=== PATIENT | male | born 1965 | race Caucasian/White ===

== ENCOUNTER 2018-03-27 07:34 | Emergency (ER) | payer SELFPAY ==
[2018-03-27] MEDS ORDERED: Metoclopramide 10 MG/2 ML SDV IVPUSH ONE (08:09)
[2018-03-27] MEDS ORDERED: HYDROmorphone 0.5 MG/0.5 ML SYRINGE IVPUSH ONE ×2 (08:09→08:55)
[2018-03-27] MEDS ORDERED: Sodium Chloride 0.9% 1,000 ML IV SCH (08:15)
--- NOTE | 2018-03-27 08:15 | EDM.PDOC ---
ED HPI GENERAL MEDICAL PROBLEM - General Chief Complaint: Genitourinary Problem Stated Complaint: BLOOD IN URINE/FLANK PAIN Time Seen by Provider: 03/27/18 08:08 Source of Information: Reports: Patient History Limitations: Reports: No Limitations - History of Present Illness INITIAL COMMENTS - FREE TEXT/NARRATIVE: 52-year-old male presents to the ED with acute onset of left flank pain about 2000 hrs. last evening. States shortly thereafter he passed grossly bloody urine. He said was quite dark at that time. Subsequently he was up during the night to pass his urine 5-6 times a a continued feeling of need to void. No associated nausea or vomiting. No feeling of need to defecate continuously. No past history of renal stones. Past surgical procedures on the abdomen have been an appendectomy and a right inguinal hernia. Currently rates the pain as 8 out of 10. He did not have breakfast this morning. Onset: Sudden Onset Date: 03/26/18 Onset Time: 20:00 Duration: Hour(s): Location: Reports: Back (Left flank.) Quality: Reports: Ache, Throbbing, Other Severity: Moderate (Colicky component to the pain) Improves with: Reports: None ( early pain as 8 out of 10) Worsens with: Reports: None Context: Reports: Other. Denies: Activity, Exercise, Lifting, Sick Contact, Trauma Associated Symptoms: Reports: Malaise. Denies: Confusion (Spontaneous occurrence at about 2000 hrs. 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[employer]: Reports: Other (see below) - Related Data Allergies Allergy/AdvReac Type Severity Reaction Status Date / Time No Known Allergies Allergy Verified 03/27/18 08:44 Home Meds: Home Meds Aspirin [Deanna Chewable Aspirin] 2 tab.chew PO DAILY 03/27/18 [History] Tamsulosin HCl [Flomax] 0.4 mg PO DAILY #30 cap.er.24h 03/27/18 [Rx] Past Medical History Cardiovascular History: Reports: Hypertension Neurological History: Reports: Concussion, Migraines - Past Surgical History Head Surgeries/Procedures: Reports: None GI Surgical History: Reports: Hernia, Inguinal Other GI Surgeries/Procedures: 06/1988 Musculoskeletal Surgical History: Reports: Shoulder Surgery Other Musculoskeletal Surgeries/Procedures:: 02/2006 - Left Social & Family History - Tobacco Use Smoking Status *Q: Current Every Day Smoker Years of Tobacco use: 20 Packs/Tins Daily: 0.5 - Caffeine Use Caffeine Use: Reports: Coffee, Tea - Recreational Drug Use Recreational Drug Use: No - Living Situation & Occupation Living situation: Reports: Single Occupation: Employed ED ROS GENERAL - Review of Systems Review Of Systems: See Below Constitutional: Reports: Decreased Appetite. Denies: Fever, Chills, Malaise, Weakness, Fatigue, Weight Loss HEENT: Reports: No Symptoms Respiratory: Reports: No Symptoms Cardiovascular: Reports: No Symptoms Endocrine: Reports: No Symptoms GI/Abdominal: Reports: No Symptoms : Reports: Flank Pain (Gross hematuria since 2000 hrs. last night associated with left flank pain.), Other Musculoskeletal: Reports: No Symptoms Skin: Reports: No Symptoms Neurological: Reports: No Symptoms Psychiatric: Reports: No Symptoms Hematologic/Lymphatic: Reports: No Symptoms Immunologic: Reports: No Symptoms ED EXAM, GI/ABD - Physical Exam Exam: See Below Exam Limited By: No Limitations General Appearance: Alert, WD/WN, No Apparent Distress Eyes: Bilateral: Normal Appearance Respiratory/Chest: No Respiratory Distress, Lungs Clear, Normal Breath Sounds, No Accessory Muscle Use, Chest Non-Tender Cardiovascular: Normal Peripheral Pulses, Regular Rate, Rhythm, No Edema, No Gallop, No Murmur GI/Abdominal Exam: Normal Bowel Sounds, Soft, Non-Tender, No Organomegaly, Other (Moderately obese. Abdominal girth limits ability to palpate solid organs. Evidence of previous appendectomy and right inguinal hernia raphe.) Back Exam: CVA Tenderness (L) Extremities: Normal Inspection, Normal Range of Motion, Non-Tender, No Pedal Edema Neurological: Alert, Oriented, CN II-XII Intact, Normal Cognition, Normal Gait Psychiatric: Normal Affect, Normal Mood Skin Exam: Warm, Dry, Intact, Normal Color, No Rash Course - Vital Signs Last Recorded V/S: Last Vital Signs Temp 36.7 C 03/27/18 07:41 Pulse 82 03/27/18 12:30 Resp 20 03/27/18 07:41 BP 145/85 H 03/27/18 12:30 Pulse Ox 98 03/27/18 12:30 - Orders/Labs/Meds Orders: Active Orders 24 hr Category Date Time Status URINALYSIS W/MICROSCOPIC [UA W/MICROSCOPIC] [URIN] Stat Lab 03/27/18 09:22 Ordered 52-year-old male presents to the ED with acute onset of left flank pain last evening associated with gross hematuria. Since that time he has a constant need or feeling of need to void. States the pain is 8 out of 10. He was able to sleep some during the night by laying on the left side. States it felt better for was compressed. This morning the urine is clear but still had some blood. He no no associated nausea or vomiting. Has a brother hasn't had kidney stones. Plan urinalysis. CT abdomen per renal protocol. IV normal saline at 150 mils per hour. Given Dilaudid 1 mg IV with Reglan 10 mg IV for nausea and pain relief. Labs: Laboratory Tests 03/27/18 03/27/18 03/27/18 Range/Units 08:18 08:18 09:22 WBC 8.46 (4.23-9.07) K/mm3 RBC 5.30 (4.63-6.08) M/mm3 Hgb 16.1 (13.7-17.5) gm/L Hct 47.5 (40.1-51.0) % MCV 89.6 (79.0-92.2) fl MCH 30.4 (25.7-32.2) pg MCHC 33.9 (32.2-35.5) g/dl RDW Std Deviation 45.7 H (35.1-43.9) fL Plt Count 212 (163-337) K/mm3 MPV 11.5 (9.4-12.3) fl Neutrophils % (Manual) 62 H (40-60) % Band Neutrophils % 4 (0-10) % Lymphocytes % (Manual) 23 (20-40) % Atypical Lymphs % 1 % Monocytes % (Manual) 3 (2-10) % Eosinophils % (Manual) 6 (0.8-7.0) % Basophils % (Manual) 0 L (0.2-1.2) Metamyelocytes % 1 Toxic Granulation 1+ slight Platelet Estimate Adequate Plt Morphology Comment See note Polychromasia 1+ slight Stomatocytes 1+ slight RBC Morph Comment Not Reportable Sodium 141 (136-145) mEq/L Potassium 4.0 (3.5-5.1) mEq/L Chloride 106 (98-107) mEq/L Carbon Dioxide 27 (21-32) mEq/L Anion Gap 12.0 (5-15) BUN 17 (7-18) mg/dL Creatinine 1.1 (0.7-1.3) mg/dL Est Cr Clr Drug Dosing TNP Estimated GFR (MDRD) > 60 (>60) mL/min BUN/Creatinine Ratio 15.5 (14-18) Glucose 174 H (74-106) mg/dL Calcium 8.8 (8.5-10.1) mg/dL Total Bilirubin 0.6 (0.2-1.0) mg/dL AST 17 (15-37) U/L ALT 37 (16-63) U/L Alkaline Phosphatase 68 (46-116) U/L C-Reactive Protein 1.6 H* (<1.0) mg/dL Total Protein 7.1 (6.4-8.2) g/dl Albumin 3.5 (3.4-5.0) g/dl Globulin 3.6 gm/dL Albumin/Globulin Ratio 1.0 (1-2) Urine Color Yellow (Yellow) Urine Appearance Clear (Clear) Urine pH 6.0 (5.0-8.0) Ur Specific [place] > or = 1.030 (1.005-1.030) Urine Protein Negative (Negative) Urine Glucose (UA) Negative (Negative) Urine Ketones Negative (Negative) Urine Occult Blood Negative (Negative) Urine Nitrite Negative (Negative) Urine Bilirubin Negative (Negative) Urine Urobilinogen 1.0 (0.2-1.0) Ur Leukocyte Esterase Negative (Negative) Urine RBC 0-5 (0-5) /hpf Urine WBC 0-5 (0-5) /hpf Ur Epithelial Cells 0-5 (0-5) /hpf Urine Bacteria Few (FEW) /hpf Urine Mucus Moderate H (FEW) /hpf Meds: Medications Discontinued Medications Generic Name Dose Route Start Last Admin Trade Name Freq PRN Reason Stop Dose Admin Hydromorphone HCl 1 mg 03/27/18 08:09 03/27/18 08:34 Dilaudid IVPUSH 03/27/18 08:10 1 mg ONETIME ONE Administration Hydromorphone HCl 0.5 mg 03/27/18 08:55 03/27/18 09:01 Dilaudid IVPUSH 03/27/18 08:56 0.5 mg ONETIME ONE Administration Sodium Chloride 1,000 mls @ 150 mls/hr 03/27/18 08:15 03/27/18 08:34 Normal Saline IV 150 mls/hr ASDIRECTED YASMANI Administration Iopamidol 125 ml 03/27/18 09:49 03/27/18 10:07 Isovue-300 (61%) IVPUSH 03/27/18 09:50 125 ml ONETIME ONE Administration Metoclopramide HCl 10 mg 03/27/18 08:09 03/27/18 08:34 Reglan IVPUSH 03/27/18 08:10 10 mg ONETIME ONE Administration Sodium Chloride 10 ml 03/27/18 10:02 03/27/18 10:07 Saline Flush FLUSH 10 ml ONETIME PRN Administration IV FLUSH - Radiology Interpretation Free Text/Narrative:: 52-year-old male presents to the ED with acute left flank pain radiating into his left upper abdomen. This started about 2000 hrs. last night and was associated with gross hematuria. Central gross hematuria on urine passage throughout the night 5 or 6 times. States the urine looked a little clear on the last void. Pain is rated at 8 out of 10 in his left flank. He does have left costovertebral angle tenderness on examination but no other positive findings. Of note his abdominal girth limits ability to palpate solid organs. No history of renal stones. - Re-Assessments/Exams Free Text/Narrative Re-Assessment/Exam: 03/27/18 08:56 CT of the abdomen and pelvis done per renal protocol reveals no hydronephrosis of the left kidney. The ureter appears to be within normal limits with no obstruction from a stone identified. Similarly no stones are identified in the right renal parenchyma or) each system. The liver the pancreas and spleen all appear normal. Gallbladder is difficult to identify. There is a large fat filled umbilical hernia. 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 Plan we will await the radiologist's report. Patient reports his pain is down to a 4 out of 10. Will given her another 0.5 mg of Dilaudid IV. Lab work will be done to assess his creatinine for potential IV with contrast CT of the abdomen and pelvis to babble better look at the kidney. 03/27/18 09:39 Labs are back. Total white count is normal at 8.46. Hemoglobin is 16.1. Hematocrit is 47.5. Platelet count is normal at 212,000. Differential is 62% neutrophils and 4% band cells. Sodium is 141 with potassium of 4.0. Toward 106 with a bicarbonate 27. And a gap is normal at 12.0. BUN is 17 with a creatinine of 1.1. GFR is greater than 60. Glucose elevated at 174. Calcium 8.8. Liver function normal. C-reactive protein 1.6. Only the dip is back on the urinalysis showing nothing. There is no leukocyte esterase or blood reported. Micro pending. 03/27/18 11:32 Urinalysis is negative for infective process. No red cells were identified either. Repeat CT scan of the abdomen pelvis done with IV contrast reveals no abnormalities within the kidneys other than a 2.2 cm cyst in the upper pole of the right kidney which was noted on previous CT. No additional abnormalities were seen with pain either kidney. Delayed images show contrast excretion from both kidneys into the ureters. No filling defects are seen within the opacified collecting system or ureters. Contrast is seen on delayed images within the bladder bladder wall again noted to be slightly thickened. Just mild prostatic obstruction. In light of a normal urinalysis at this time the source of bleeding is unclear but may be from the bladder wall. Patient will require follow-up with urology services for cystoscopy to rule out a tumor in his bladder as a cause of his bleeding per urethra. Patient advised of this findings. I will try and set up by urology appointment for him at [facility] in [place]. 03/27/18: Was able to speak to urologist Dr. Perez. He will have his department arrange an appointment time for this patient and contact him by phone. Departure - Departure Time of Disposition: 12:03 Disposition: Home, Self-Care 01 Condition: Fair Clinical Impression: Gross hematuria - Discharge Information *PRESCRIPTION DRUG MONITORING PROGRAM REVIEWED*: Not Applicable *COPY OF PRESCRIPTION DRUG MONITORING REPORT IN PATIENT NICOL: Not Applicable Prescriptions: Tamsulosin HCl [Flomax] 0.4 mg PO DAILY #30 cap.er.24h Instructions: Flank Pain, Adult, [id number] Referrals: PCP,None [Primary Care Provider] - Forms: ED Department Discharge Additional Instructions: Evaluation the emergency room today in regards to development of left-sided flank pain and associated bloody urine. This started at 2000 hrs. last night. Pressure discomfort in the left flank area persisted throughout the night but you're able to get some sleep. Reportedly up 5 or 6 times during the night to void all of which contain blood. He noticed that the last year and voided was fairly clear however. Therefore the consideration was for a possible kidney stone in the left kidney or upper ureter. CT scan of the abdomen was performed without contrast per renal protocol and no stones were identified in either kidney or in the ureters to obstruct the kidney. There is a 2.2 cm cyst in the upper pole of the right kidney which you are likely born with and is of no consequence. Due to the concern for the model blood identified by you in the urine further investigations were felt to be indicated. Therefore CT of the abdomen and pelvis was done with IV contrast to rule out any cancer in the kidneys or ureters. This proved to be normal as well. The only finding is a slightly thickened bladder wall suggesting while a blood obstruction may be due to an enlarged prostate. However you do not seem to have symptoms to support this. Therefore the other source of blood in the urine can be from the inside of the bladder wall from tumor or growth. Therefore further investigations are required with a urologist to look into your bladder to identify that there is no serious pathology. The urine analysis done in the ED did not show any signs of infection or blood at today. Continue all regular diet and regular fluids until follow-up with urology services. We'll place you on Flomax 0.4 mg once daily every night at bedtime until follow-up with urology services. This would help reduce swelling of the prostate. I have contacted [facility] urology services and they will call you with an appointment time likely within the next day or so. You may find blood in your urine intermittently for the next several days or weeks. The only reason to return to medical care would be if you cannot void because of clots formation within the bladder and plugged up the urinary system. - My Orders Last 24 Hours: My Active Orders 03/27/18 09:22 URINALYSIS W/MICROSCOPIC [UA W/MICROSCOPIC] [URIN] Stat - Assessment/Plan Last 24 Hours: My Active Orders 03/27/18 09:22 URINALYSIS W/MICROSCOPIC [UA W/MICROSCOPIC] [URIN] Stat
--- NOTE | 2018-03-27 09:04 | CT ---
CT abdomen and pelvis Technique: Multiple axial sections were obtained from above the kidneys inferiorly through the pubic symphysis. Intravenous contrast and oral contrast was not utilized. Study has been performed as a ureteral stone protocol. Findings: Kidneys show no abnormal calcifications. No ureteral dilatation is seen. No ureteral calcifications are noted. No bladder calculi are seen. Incidental prostate calcifications are present. 1.7 cm upper pole cyst is noted within the right kidney. Fatty infiltration is seen within the liver. Visualized lung bases show nothing acute. Spleen appears within normal limits. Adrenal glands show no nodule. Pancreas appears within normal limits. Aorta shows no aneurysmal dilatation. Fat-containing anterior abdominal wall hernia is seen which is located directly above the umbilicus. No retroperitoneal adenopathy or mesenteric abnormalities are seen. No pelvic mass or adenopathy is seen. Small fat-containing bilateral inguinal hernias are noted. Bone window settings were reviewed which show mild degenerative change scattered within the spine. Impression: 1. No renal calculi, no ureteral dilatation or ureteral stone is seen. 2. 1.7 cm upper pole cyst within the right kidney. 3. Fatty infiltration within the liver and other incidental findings. Diagnostic code #2
[2018-03-27] MEDS ORDERED: Iopamidol 612 MG/ML 150 ML Bottle IVPUSH ONE (09:49)
[2018-03-27] MEDS ORDERED: Sodium Chloride 0.9% 10 ML Syringe FLUSH PRN (10:02)
--- NOTE | 2018-03-27 10:51 | CT ---
CT abdomen and pelvis Technique: Multiple axial sections were obtained from above the dome of the diaphragm inferiorly to the iliac crests. Intravenous contrast was utilized. Imaging was obtained 40 seconds after contrast administration. 5 minute delayed images were then obtained from above the dome of the diaphragm inferiorly to the pubic symphysis. Comparison: Prior noncontrast CT exam performed earlier on the same day (8:40 AM) Findings: Cyst is identified within the upper right kidney. Cyst measures about 2.2 cm on this exam. No additional abnormality is seen within the kidneys. Delayed images show contrast excretion from both kidneys into the ureters. No filling defects are seen within the opacified collecting system or ureters. Contrast is seen on delayed images within the bladder. Bladder wall again noted to be slightly thickened. Fatty infiltration is seen within the liver. Spleen is normal. Visualized lung bases are clear. Adrenal glands appear within normal limits. Pancreas is normal. Fat-containing anterior abdominal wall hernia is seen. Aorta shows atherosclerotic change without aneurysm. No retroperitoneal adenopathy or mesenteric abnormalities are seen. No pelvic mass or adenopathy is seen. Small fat-containing bilateral inguinal hernias are noted. Impression: 1. Small cyst within the upper right kidney. Kidneys otherwise appear normal without mass or hydronephrosis. Opacified collecting systems and ureters appear within normal limits. Bladder wall thickening is again noted most likely representing change from chronic bladder outlet obstruction. 2. Fatty infiltration within the liver and other incidental findings. Note: No etiology is seen for the patient's gross hematuria or flank pain. Diagnostic code #2
[2018-03-27 12:31] VITALS: BP 145/85
== END 2018-03-27 12:29 | disposition home or self-care (01) ==
LOC: JD.ED 07:34
DX: R31.0 Gross hematuria (principal); I10 Essential (primary) hypertension; F17.210 Nicotine dependence, cigarettes, uncomplicated; Z79.82 Long term (current) use of aspirin
CPT/HCPCS: 36415; 74176; 74177; 80053; 81001; 85007; 85027; 86140; 96361; 96374; 96375; 99284; J1170; J2765; J7040; J7050; Q9967

== ENCOUNTER 2021-05-04 06:40 | Day surgery (SDC) | payer BC, MEDICAID ==
[~2021-05-04 06:40] MED LIST: Acetaminophen 325 MG Tab PO SCH; Lactated Ringers 1,000 ML IV SCH; Lidocaine 1%/Sod Bicarbonate in NS 8.4% 1 ML Syringe IDERM PRN; Pregabalin 25 MG Cap PO SCH; Sodium Chloride 0.9% 10 ML Syringe FLUSH PRN; oxyCODONE ER 10 MG TAB.ER PO SCH
[2021-05-04] MEDS ORDERED: Propofol 200 MG/20 ML SDV ONE (07:28)
[2021-05-04] MEDS ORDERED: fentaNYL 100 MCG/2 ML SDV ONE (07:28)
[2021-05-04] MEDS ORDERED: Midazolam 1 MG/ML 2 ML SDV ONE (07:34)
[2021-05-04] MEDS ORDERED: Dexamethasone 4 MG/ML 5 ML MDV ONE (07:35)
[2021-05-04] MEDS ORDERED: Ondansetron 4 MG/2 ML SDV ONE (07:35)
--- NOTE | 2021-05-04 07:46 | PCM.PREANE ---
Preanesthetic Assessment - Procedure Proposed Procedure: L TKA - Anesthesia/Transfusion/Family Hx Anesthesia History: Prior Anesthesia Without Reaction Family History of Anesthesia Reaction: No Transfusion History: No Prior Transfusion(s) - Review of Systems General: No Symptoms Pulmonary: No Symptoms, Other (TERI with CPAP, smoker, ) Cardiovascular: No Symptoms Gastrointestinal: No Symptoms Neurological: No Symptoms Other: Reports: None - Physical Assessment NPO Status Date: 05/03/21 NPO Status Time: 23:30 Vital Signs: Last Vital Signs Temp 36.4 C 05/04/21 07:40 Pulse Resp BP Pulse Ox Height: 1.75 m Weight: 127 kg ASA Class: 3 Mental Status: Alert & Oriented x3 Dentition: Reports: Dentures (upper) Thyro-Mental Finger Breadths: 3 Mouth Opening Finger Breadths: 3 ROM/Head Extension: Full Lungs: Clear to Auscultation, Normal Respiratory Effort Cardiovascular: Regular Rate, Regular Rhythm - Allergies Allergies/Adverse Reactions: Allergies Allergy/AdvReac Type Severity Reaction Status Date / Time No Known Allergies Allergy Verified 05/03/21 16:38 - Blood Blood Available: No Product(s) Available: None - Anesthesia Plan Pre-Op Medication Ordered: None - Acknowledgements Anesthesia Type Planned: Spinal Pt an Appropriate Candidate for the Planned Anesthesia: Yes Alternatives and Risks of Anesthesia Discussed w Pt/Guardian: Yes Pt/Guardian Understands and Agrees with Anesthesia Plan: Yes PreAnesthesia Questionnaire HEENT History: Reports: Impaired Vision, Other (See Below) Other HEENT History: wears glasses, has dentures Cardiovascular History: Reports: Heart Murmur, Hypertension Respiratory History: Reports: Sleep Apnea Gastrointestinal History: Reports: None Genitourinary History: Reports: None DIGITAL EDITOR History: Reports: None Neurological History: Reports: Concussion, Migraines Psychiatric History: Reports: None Endocrine/Metabolic History: Reports: Diabetes, Type II Hematologic History: Reports: None Oncologic (Cancer) History: Reports: None Dermatologic History: Reports: Other (See Below) Other Dermatologic History: hordeolum - Past Surgical History Head Surgeries/Procedures: Reports: None Cardiovascular Surgical History: Reports: None Respiratory Surgical History: Reports: None GI Surgical History: Reports: Appendectomy, Cholecystectomy, Hernia, Inguinal Other GI Surgeries/Procedures: 06/1988 Female Surgical History: Reports: None Male Surgical History: Reports: None Endocrine Surgical History: Reports: None Neurological Surgical History: Reports: None Musculoskeletal Surgical History: Reports: Shoulder Surgery Other Musculoskeletal Surgeries/Procedures:: 02/2006 - Left Oncologic Surgical History: Reports: None Dermatological Surgical History: Reports: None - SUBSTANCE USE Tobacco Use Status *Q: Current Every Day Tobacco User Recreational Drug Use History: No - HOME MEDS Home Medications: Home Meds Cholecalciferol (Vitamin D3) [Vitamin D3] 2,000 unit PO DAILY 05/03/21 [History] Cinnamon Bark [Cinnamon] 1,000 mg PO DAILY 05/03/21 [History] Lisinopril/Hydrochlorothiazide [Lisinopril-Hctz 20-25 mg Tab] 1 tab PO DAILY 05/03/21 [History] metFORMIN [Glucophage] 500 mg PO BID 05/03/21 [History] Apixaban [Eliquis] 2.5 mg PO BID #60 tablet 05/04/21 [Rx] Cyclobenzaprine [Flexeril] 10 mg PO BID PRN #20 tab 05/04/21 [Rx] oxyCODONE 5 - 10 mg PO Q4H PRN #40 tab 05/04/21 [Rx] - CURRENT (IN HOUSE) MEDS Current Meds: Current Medications Acetaminophen (Acetaminophen 325 Mg Tab) 975 mg PO ONETIME YASMANI Stop: 05/04/21 16:00 Last Admin: 05/04/21 07:40 Dose: 975 mg Documented by: Morphine Sulfate 8 mg/Epinephrine HCl 0.3 mg/Cefuroxime Sodium 750 mg/Ketorolac Tromethamine 30 mg/Sodium Chloride 7.9 ml 0 mg .XX ASDIRECTED PRN PRN Reason: Pain Stop: 05/04/21 16:00 Lactated Ringer's (Ringers, Lactated) 1,000 mls @ 125 mls/hr IV ASDIRECTED YASMANI Stop: 05/04/21 23:00 Lidocaine/Sodium Bicarbonate (Lidocaine 1%/Sod Bicarbonate In Ns 8.4% 1 Ml Syringe) 0.25 ml IDERM ONETIME PRN PRN Reason: Prior to IV Start Stop: 05/04/21 18:00 Oxycodone HCl (Oxycodone Er 10 Mg Tab.Er) 10 mg PO ONETIME YASMANI Stop: 05/04/21 16:00 Last Admin: 05/04/21 07:39 Dose: 10 mg Documented by: Pregabalin (Pregabalin 25 Mg Cap) 50 mg PO ONETIME YASMANI Stop: 05/04/21 16:00 Last Admin: 05/04/21 07:40 Dose: 50 mg Documented by: Sodium Chloride (Sodium Chloride 0.9% 10 Ml Syringe) 10 ml FLUSH ASDIRECTED PRN PRN Reason: Keep Vein Open Stop: 05/04/21 18:00 Discontinued Medications Dexamethasone (Dexamethasone 4 Mg/Ml 5 Ml Mdv) Confirm Administered Dose 20 mg .ROUTE .STK-MED ONE Stop: 05/04/21 07:36 Fentanyl (Fentanyl 100 Mcg/2 Ml Sdv) Confirm Administered Dose 100 mcg .ROUTE .STK-MED ONE Stop: 05/04/21 07:29 Midazolam HCl (Midazolam 1 Mg/Ml 2 Ml Sdv) Confirm Administered Dose 2 mg .ROUTE .STK-MED ONE Stop: 05/04/21 07:35 Ondansetron HCl (Ondansetron 4 Mg/2 Ml Sdv) Confirm Administered Dose 4 mg .ROUTE .STK-MED ONE Stop: 05/04/21 07:36 Propofol (Propofol 200 Mg/20 Ml Sdv) Confirm Administered Dose 600 mg .ROUTE .STK-MED ONE Stop: 05/04/21 07:29 Tranexamic Acid (Tranexamic Acid 1,000 Mg/10 Ml Amp) Confirm Administered Dose 1,000 mg .ROUTE .STK-MED ONE Stop: 05/04/21 07:06 Vancomycin HCl (Vancomycin 1 Gm Sdv) Confirm Administered Dose 1 gm .ROUTE .STK- MED ONE Stop: 05/04/21 07:06
[2021-05-04] MEDS ORDERED: Lidocaine 1% 4 ML ONE (09:02)
[2021-05-04] MEDS ORDERED: ceFAZolin 1 GM Vial ONE (09:18)
[2021-05-04] MEDS: Morphine 8 MG, EPINEPHrine 0.3 MG, Cefuroxime 750 MG, Ketorolac 30 MG, Sodium Chloride ... PRN ×10 (09:46→10:06)
[2021-05-04] MEDS ORDERED: HYDROmorphone 0.5 MG/0.5 ML Syringe IVPUSH PRN (09:48)
[2021-05-04] MEDS ORDERED: Ondansetron 4 MG/2 ML SDV IVPUSH PRN (09:48)
[2021-05-04] MEDS: Vancomycin 1 GM SDV ONE ×2 (09:48→10:16)
[2021-05-04] MEDS ORDERED: fentaNYL 100 MCG/2 ML SDV IVPUSH PRN (09:48)
[2021-05-04] MEDS ORDERED: Lactated Ringers 1,000 ML ONE ×2 (10:17)
[2021-05-04] MEDS ORDERED: oxyCODONE 5 MG Tab PO PRN (10:22)
[2021-05-04] MEDS ORDERED: Cyclobenzaprine 10 MG Tab PO PRN (10:22)
--- NOTE | 2021-05-04 10:39 | PCM.POSTAN ---
POST ANESTHESIA ASSESSMENT - MENTAL STATUS Mental Status: Alert, Oriented - VITAL SIGNS Vital Signs: Last Vital Signs Temp 36.4 C 05/04/21 08:21 Pulse 88 05/04/21 08:21 Resp 20 05/04/21 08:21 BP 110/66 05/04/21 08:21 Pulse Ox 93 L 05/04/21 08:21 - RESPIRATORY Respiratory Status: Respiratory Rate WNL, Airway Patent, O2 Saturation Stable - CARDIOVASCULAR CV Status: Pulse Rate WNL, Blood Pressure Stable - GASTROINTESTINAL GI Status: No Symptoms - PAIN Pain Score: 0 - POST OP HYDRATION Hydration Status: Adequate & Stable
[2021-05-04] MEDS ORDERED: EPINEPHrine 1 MG/ML SDV ONE (10:57)
[2021-05-04] MEDS ORDERED: Ropivacaine 0.5% 5 MG/ML 30 ML SDV ONE (10:58)
--- NOTE | 2021-05-04 11:22 | CR ---
Left knee: AP and crosstable lateral views of the left knee were obtained. Comparison: Previous left knee CT study of 04/19/21. Left knee prosthesis is seen. Patellar prosthesis is noted. Prostheses appear normal in alignment. Underlying bony structures show nothing else acute. Soft tissue air is noted. Impression: 1. Satisfactory postop radiographic appearance of recently placed left knee prostheses. Diagnostic code #2
--- NOTE | 2021-05-04 13:12 | PCM.PRNOTE ---
- Free Text/Narrative Note: Left selective femoral nerve block at the adductor canal for post-procedure pain control under US guidance requested by Dr. Hamilton. Time Out: 1223 Start: 1224 End: 1234 Chart reviewed. Consent signed. Questions answered. Appropriate monitors applied. Time out performed. Left mid-shaft femur identified with ultrasound, scanning medially of femur, the femoral artery in the adductor canal visualized, and the femoral nerve located laterally to the artery. The skin was prepped lateral to the ultrasound probe with chlorahexadine times two. The 21ga 4 insulated block needle was inserted under direct ultrasound guidance into the adductor canal. 20 mL of 0.5% ropivacaine with 1:200,000 epinephrine was injected circumferentially around the nerve with intermittent negative aspiration noted. Patient tolerated the procedure well. Sterile technique noted along with sterile gloves, mask, and sterile probe cover. See picture on progress note and vital signs on nurses notes. Block completed in PACU. Leydi Light CRNA
--- NOTE | 2021-05-04 14:43 | PCM48HPAN ---
Post Anesthesia Note - EVALUATION WITHIN 48HRS OF ANESTHETIC Vital Signs in Normal Range: Yes Patient Participated in Evaluation: Yes Respiratory Function Stable: Yes Airway Patent: Yes Cardiovascular Function Stable: Yes Hydration Status Stable: Yes Pain Control Satisfactory: Yes Nausea and Vomiting Control Satisfactory: Yes Mental Status Recovered: Yes Vital Signs: Last Vital Signs Temp 36.7 C 05/04/21 12:45 Pulse 93 05/04/21 12:45 Resp 20 05/04/21 12:45 BP 152/82 H 05/04/21 12:45 Pulse Ox 95 05/04/21 12:45
[2021-05-04 15:02] VITALS: BP 130/84; PULSE 96
--- NOTE | 2021-05-17 17:28 | PCM.OPNOTE ---
- General Post-Op/Procedure Note Date of Surgery/Procedure: 05/04/21 Operative Procedure(s): left total knee arthroplasty with mary lou cecilia robtics Pre Op Diagnosis: left knee osteoarthrosis Post-Op Diagnosis: Same Anesthesia Technique: Local, MAC, Spinal Primary Surgeon: Esteban Hamilton Anesthesia Provider: Rick Beckwith Account Liaison Hospice: Connie Frausto Account Liaison Hospice: Ashley Lantigua EBL in mLs: 5 Complications: None Condition: Good Free Text/Narrative:: 5 4 9 35x10 cemented patella
--- NOTE | 2021-05-17 18:04 | OR ---
DATE OF OPERATION: 05/04/2021 SURGEON: Esteban Hamilton MD OPERATION PERFORMED: Left total knee arthroplasty with [place] Tyree robotics. PREOPERATIVE DIAGNOSIS: Left knee osteoarthrosis. POSTOPERATIVE DIAGNOSIS: Left knee osteoarthrosis. ANESTHESIA: Local MAC with spinal. ANESTHESIA PROVIDER: Rick Beckwith ASSISTANTS: Connie Frausto PA-C and Ashley Lantigua LPN ESTIMATED BLOOD LOSS: 5 mL. COMPLICATIONS: None. CONDITION: Stable. IMPLANTS: 1. [place] size 5 press-fit CR femur. 2. Blaire size 4 press-fit tibial base plate. 3. Blaire size 4, 9 mm CS polyethylene insert. 4. [place] size 35 x 10 mm cemented asymmetric patella. DESCRIPTION OF PROCEDURE: The patient was identified in the preop holding area. Proper site was marked and identified by the surgeon. The patient was taken back to the operating theater where after adequate anesthesia, the patient's left lower extremity had a nonsterile tourniquet applied and it was sterilely prepped and draped in the usual sterile fashion. OR time-out was performed. The patient received 2 g IV Ancef . Leg ferris was then applied to the left lower extremity. At this time, the left lower extremity was exsanguinated. Tourniquet was insufflated to 250 mmHg . Standard anterior incision was made. Medial parapatellar arthrotomy was created. Deep fibers of the MCL were raised as well as anterior fat pad was resected. Attention was turned to the patella. Patella measured 24 mm ; it was resected to a 14 mm for a 35 x 10 mm patella. Drill holes were then drilled. Attention was then turned to the femur. Two 4.0 pins were placed intra- incisionally for the Blaire Tyree robotic array and then 2 more were placed on the tibia 3 fingerbreadths below the tibial tubercle. The Blaire Tyree robotic arrays were placed on both the femur and the tibia then at this time as well as checkpoints on the femur and tibia. Hip center rotation was then obtained. The medial and lateral malleoli were marked. At this time, 40 points were obtained off the femur and the tibia for the [place] Tyree robotic plan. The patients knee was brought to full extension. Varus and valgus stresses were applied and then into 90 degrees of flexion with a curved osteotome. Varus and valgus stresses were applied. At this time, Serstech robotic plan was done to 19 mm gaps in both flexion and extension. Blaire PrintFu robotic arm was then brought in. A straight saw blade was then used for the tibial cut, the anterior femoral cut, the anterior chamfer cut, and the posterior femoral cut. All bony fragments were removed. Saw blade was then switched out and the distal femoral cut as well as the posterior chamfer cut was completed. At this time, medial and lateral menisci were resected as well as any posterior osteophytes. A 4 mm trial tibia was then placed, 5 mm trial femur was placed, and a 4, 9 mm polyethylene trial liner was placed. The patients knee was brought to full extension and flexion. Varus and valgus stresses were applied, was found to be stable with no instability. No signs of liftoff or loosening were noted. At this time, box cut was completed on the femur. The pins were removed from the femur and the tibia as well as the arrays and the checkpoints. Cement was mixed on the back table. All cut surfaces were irrigated with pulse lavage irrigation with Ancef and then completely dried. Once the cement was ready, the [place] size 4 mm cemented [place] tibial base plate having been previously stamped and drilled, was then cemented in place on the tibia. The Blaire size 5 mm cemented femur was cemented into place. The patient had a [place] size 4, 9 mm polyethylene insert placed. The patients knee was brought to full extension. Excess cement was removed. A [place] size 35 x 10 mm cemented asymmetric patella was then cemented into place. 1 L of pulse lavage irrigation with Ancef was irrigated through the knee along with 400 mL of Irrisept irrigation. Periarticular injection was completed. Topical tranexamic acid and vancomycin powder were applied. A #2 barbed suture was used for closure of the medial parapatellar arthrotomy in flexion. 2-0 Vicryl and Stratafix were used for subcutaneous closure. Prineo was used for cutaneous closure. The patient had a sterile soft dressing applied. The tibial holes were closed with nylon, and this was also covered with a sterile soft dressing. The patient had an BIANKA wrap applied and was sent to PACU in stable condition. The patient tolerated the procedure well. MMODAL /[id number]
== END 2021-05-04 14:58 | disposition home or self-care (01) ==
LOC: JD.SDS 06:40
PROVIDERS: ATTEND Orthopaedic Surgery
DX: M17.12 Unilateral primary osteoarthritis, left knee (principal); M25.762 Osteophyte, left knee; E11.9 Type 2 diabetes mellitus without complications; I10 Essential (primary) hypertension; G47.33 Obstructive sleep apnea (adult) (pediatric); F17.210 Nicotine dependence, cigarettes, uncomplicated; Z79.84 Long term (current) use of oral hypoglycemic drugs; Z79.899 Other long term (current) drug therapy
CPT/HCPCS: 27447; 73560; 97110; 97116; 97161; A9270; C1713; C1776; J0171; J0690; J0697; J1100; J1170; J1885; J2250; J2270; J2405; J2704; J2795; J3010; J3370; J7120; 01402; 64450; 76942

== ENCOUNTER 2021-05-21 16:55 | Emergency (ER) | payer MEDICAID ==
[2021-05-21 18:30] VITALS: BP 136/97; PULSE 117
--- NOTE | 2021-05-21 20:58 | EDM.PDOC ---
ED HPI GENERAL MEDICAL PROBLEM - General Chief Complaint: Genitourinary Problem Stated Complaint: TESTICAL PAIN Time Seen by Provider: 05/21/21 20:38 Source of Information: Reports: Patient History Limitations: Reports: No Limitations - History of Present Illness INITIAL COMMENTS - FREE TEXT/NARRATIVE: Mr. Adair is a very pleasant 56-year-old gentleman who now presents the ED after injuring his left testy. He states that he underwent left total knee arthroplasty 2 weeks ago, and has a high riser on his toilet. He accidentally sat on/crushed his left teste around 06 100 this morning, when sitting down on the toilet. He immediately had pain, and has continued to have pain and tenderness throughout the day. He has also had intermittent gross hematuria. No prior left teste injury. Due to the patient's recent knee surgery, he is on Eliquis. The patient states that he took 2 acetaminophen to treat his pain today. He last ate around noon today. Here in the ED, the patient's initial BP is found to be slightly elevated 136/97, with tachycardia of 117 bpm. He is afebrile, saturating 94% on room air. He appears to be comfortable, in no acute distress. Prior to this morning, the patient denies having a recent fever, chills, sore throat, ear pain, nasal or sinus congestion, cough, dyspnea, chest pain, palpitations, nausea, vomiting, constipation, diarrhea, abdominal pain, urinary symptoms, recent weight gain or weight loss, recent bloody bowel movements or black bowel movements, headaches, or rashes. The patient's PCP is Dr. Sanjay Aleman. His Orthopedic Surgeon is Dr. Esteban Hamilton. He has not received a COVID vaccination. Left Scrotum Pain Score (Numeric/FACES): 9 - Related Data Allergies Allergy/AdvReac Type Severity Reaction Status Date / Time No Known Allergies Allergy Verified 05/03/21 16:38 Home Meds: Home Meds Cholecalciferol (Vitamin D3) [Vitamin D3] 2,000 unit PO DAILY 05/03/21 [History] Cinnamon Bark [Cinnamon] 1,000 mg PO DAILY 05/03/21 [History] Lisinopril/Hydrochlorothiazide [Lisinopril-Hctz 20-25 mg Tab] 1 tab PO DAILY 0 05/03/21 [History] metFORMIN [Glucophage] 500 mg PO BID 05/03/21 [History] Apixaban [Eliquis] 2.5 mg PO BID #60 tablet 05/04/21 [Rx] Cyclobenzaprine [Flexeril] 10 mg PO BID PRN #20 tab 05/04/21 [Rx] nitrofurantoin macrocrystaL [Nitrofurantoin] 1 cap PO Q12H #14 capsule 05/22/21 [Rx] Past Medical History HEENT History: Reports: Impaired Vision (wears glasses), Other (See Below) (Dentures) Cardiovascular History: Reports: Hypertension Respiratory History: Reports: Sleep Apnea (nightly CPAP 5) Endocrine/Metabolic History: Reports: Obesity/BMI 30+, Other (See Below) (Prediabetes) - Past Surgical History HEENT Surgical History: Reports: Oral Surgery (Dental extractions) GI Surgical History: Reports: Appendectomy, Hernia, Inguinal (left) Musculoskeletal Surgical History: Reports: Knee Replacement (left), Shoulder Surgery (left, arthroscopic) Social & Family History - Tobacco Use Tobacco Use Status *Q: Current Every Day Tobacco User Years of Tobacco use: 34 Packs/Tins Daily: 0.1 Packs/Tins Daily Comment: Down from 1.5 ppd Tobacco Use Comment: Started smoking 1986 - Caffeine Use Caffeine Use: Reports: Coffee, Soda, Tea - Alcohol Use Alcohol Use History: Yes Alcohol Use Frequency: Rarely - Recreational Drug Use Recreational Drug Use: No - Living Situation & Occupation Living situation: Reports: , with Significant Other (Girlfriend), with Family (Daughter) Occupation: Unemployed ED ROS GENERAL - Review of Systems Review Of Systems: Comprehensive ROS is negative, except as noted in HPI. ED EXAM, RENAL/ - Physical Exam Exam: See Below Exam Limited By: No Limitations General Appearance: Alert, WD/WN, No Apparent Distress Eye Exam: Bilateral Eye: EOMI, Normal Inspection Ears: Normal External Exam, Hearing Grossly Normal Nose: Normal Inspection Throat/Mouth: Normal Inspection, Normal Lips, Normal Voice, No Airway Compromise Head: Atraumatic, Normocephalic Neck: Normal Inspection, Full Range of Motion Respiratory/Chest: No Respiratory Distress, Lungs Clear, Normal Breath Sounds, No Accessory Muscle Use Cardiovascular: Normal Peripheral Pulses, Regular Rate, Rhythm, No Gallop, No JVD, No Murmur, No Rub GI/Abdominal: Normal Bowel Sounds, Soft, Non-Tender, No Organomegaly, No Distention, No Abnormal Bruit, No Mass (Male) Exam: No Hernia, Circumcised, Testicular Tenderness (L), Other (No visible abnormality to the scrotum, such as swelling, erythema, ecchymosis, or abrasion) Back Exam: Normal Inspection, Full Range of Motion, NT Extremities: Normal Range of Motion, Normal Capillary Refill, Other (Left knee dressings C/D/I. Ecchymosis noted to the medial left thigh.) Neurological: Alert, Oriented, CN II-XII Intact, Normal Cognition, Normal Gait, Normal Reflexes, No Motor/Sensory Deficits Psychiatric: Normal Affect Skin Exam: Warm, Dry, Intact, Normal Color, No Rash Course - Vital Signs Last Recorded V/S: Last Vital Signs Temp 36.9 C 05/21/21 18:27 Pulse 117 H 05/21/21 18:27 Resp 20 05/21/21 18:27 BP 136/97 H 05/21/21 18:27 Pulse Ox 94 L 05/21/21 18:27 - Orders/Labs/Meds Orders: Active Orders 24 hr Category Date Time Status Scrotum and Contents [US] Stat Exams 05/21/21 20:51 Taken CORONAVIRUS COVID-19 [place] [[facility]] Stat Lab 05/21/21 20:52 Ordered CULTURE URINE [MREF] Stat Lab 05/22/21 03:43 Received Labs: Laboratory Tests 05/21/21 Range/Units 22:42 Urine Color Yellow (Yellow) Urine Appearance Cloudy H (Clear) Urine pH 6.0 (5.0-8.0) Ur Specific [place] > or = 1.030 (1.005-1.030) Urine Protein 1+ H (Negative) Urine Glucose (UA) Negative (Negative) Urine Ketones Negative (Negative) Urine Occult Blood 3+ H (Negative) Urine Nitrite Negative (Negative) Urine Bilirubin Negative (Negative) Urine Urobilinogen 1.0 (0.2-1.0) Ur Leukocyte Esterase 2+ H (Negative) Urine RBC Too numerous to cnt H (0-5) /hpf Urine WBC >100 H (0-5) /hpf Ur Squamous Epith Cells 0-5 (0-5) /hpf Urine Bacteria Moderate H (FEW) /hpf Urine Mucus Moderate H (FEW) /hpf - Re-Assessments/Exams Free Text/Narrative Re-Assessment/Exam: 05/21/21 20:52 A urinalysis was ordered at triage. I have added an ultrasound of the scrotum and contents, along with a swab for the SARS-CoV-2 virus, in the event that the patient requires transfer to [place]. In the meantime, the patient will be kept NPO. He declined an offer for pain medication at this time. 05/21/21 22:51 Notified that the patient elected to leave [facility], telling a nurse that he had dogs to take care of. As a point of fact, I did advise the patient when I saw him that it would likely be a good hour after the ultrasound was obtained before we would have the Radiologist's report. The patient agreed to proceed with the ultrasound at that time. Ultrasound of the scrotum is read by vRsharonda as: 1. No evidence for intratesticular mass or torsion. 2. Small bilateral simple hydroceles. 3. Hyperemic left epididymis which may be trauma related. Please correlate clinically. 05/22/21 03:43 The patient's urinalysis is remarkable for 3+ occult blood with TNTC RBCs, 2+ leukocyte esterase with >100 WBCs, nitrate negative with moderate bacteria, and 0-5 squamous epithelial cells. Based on the above, I have ordered a urine culture. It does not appear that a swab for the SARS-CoV-2 virus was collected. The patient will need to be started on an antibiotic. I will endeavor to contact him in the morning. 05/22/21 07:37 I spoke with the patient over the phone at 07:34. 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 He would prefer to fruit picker machine operator the prescription and start tomorrow morning. I will submit an electronic prescription to the [facility]. Departure - Departure Time of Disposition: 22:51 Disposition: Against Medical Advice 07 Condition: Good Clinical Impression: Crush injury, testis - Discharge Information *PRESCRIPTION DRUG MONITORING PROGRAM REVIEWED*: Not Applicable *COPY OF PRESCRIPTION DRUG MONITORING REPORT IN PATIENT NICOL: Not Applicable Referrals: Sanjay Aleman MD [Primary Care Provider] - Forms: ED Department Discharge - My Orders Last 24 Hours: My Active Orders 05/21/21 20:51 Scrotum and Contents [US] Stat 05/21/21 20:52 CORONAVIRUS COVID-19 [place] [[facility]] Stat 05/22/21 03:43 CULTURE URINE [MREF] Stat - Assessment/Plan Last 24 Hours: My Active Orders 05/21/21 20:51 Scrotum and Contents [US] Stat 05/21/21 20:52 CORONAVIRUS COVID-19 [place] [[facility]] Stat 05/22/21 03:43 CULTURE URINE [MREF] Stat
--- NOTE | 2021-05-22 16:00 | US ---
Testicular ultrasound: Multiple real-time images of the testicles were obtained. Comparison: No previous testicular exam is available. Findings: Both testicles appear homogeneous without focal intratesticular abnormality. There is arterial and venous blood flow seen within the testicles. Small bilateral hydroceles are noted. Two epididymal cysts are noted within the left epididymis. Right epididymis shows a small cyst. Left small epididymis also shows increased vascularity. Measurements: Right testicle: 4.4 x 2.4 x 3.5 cm Left testicle: 3.7 x 2.8 x 2.9 cm Impression: 1. Small bilateral hydroceles. 2. Small bilateral epididymal cysts. 3. Increased vascularity within the left epididymis which could represent epididymitis versus increased blood flow from previous trauma. Diagnostic code #3 I agree with preliminary report from [facility], finalized on 05/21/21, 11:04 PM CDT, code 1
== END 2021-05-21 22:35 | disposition left against medical advice (07) ==
LOC: JD.ED 16:55
DX: S38.02XA Crushing injury of scrotum and testis, initial encounter (principal); S70.12XA Contusion of left thigh, initial encounter; I10 Essential (primary) hypertension; E66.9 Obesity, unspecified; Z68.30 Body mass index [BMI] 30.0-30.9, adult; Z72.0 Tobacco use; Z79.01 Long term (current) use of anticoagulants; Z79.84 Long term (current) use of oral hypoglycemic drugs; Z96.652 Presence of left artificial knee joint; W23.0XXA Caught, crushed, jammed, or pinched between moving objects, initial encounter
CPT/HCPCS: 76870; 76870-26; 81001; 87086; 87088; 87186; 93975; 99283; 99284-25